=== PATIENT | male | born 1985 | race Caucasian/White ===

== ENCOUNTER → 2020-04-05 09:14 | Outpatient (CLI) | payer BC, SELFPAY ==
[2020-04-06 09:17] LABS: COVID19 Sendout Not Detected (Not Detect)
== END ==
PROVIDERS: Visit Provider Physician Assistant
DX: Z01.812 Encounter for preprocedural laboratory examination (principal); Z20.828 Contact with and (suspected) exposure to other viral communicable diseases
CPT/HCPCS: 87635

== ENCOUNTER → 2020-12-06 10:18 | Outpatient (CLI) | payer BC, SELFPAY ==
[2020-12-06 11:38] LABS: Cholesterol 164 mg/dL (140-199); Glucose 93 mg/dL (70-100); HDL Cholesterol 47 mg/dL (40-60); LDL Cholesterol Calculated 107 mg/dL (<100); Triglycerides 48 mg/dL (35-150)
== END ==
PROVIDERS: PCP Family Medicine; Referring Provider Family Medicine; Visit Provider Family Medicine
DX: Z13.1 Encounter for screening for diabetes mellitus (principal); Z82.49 Family history of ischemic heart disease and other diseases of the circulatory system; Z13.220 Encounter for screening for lipoid disorders
CPT/HCPCS: 36415; 80061; 82947

== ENCOUNTER → 2022-04-12 08:55 | Outpatient (CLI) | payer BC, SELFPAY ==
[2022-04-12 10:13] LABS: Cholesterol 173 mg/dL (140-199); Glucose 105 mg/dL (70-100); HDL Cholesterol 45 mg/dL (40-60); LDL Cholesterol Calculated 102 mg/dL (<100); Triglycerides 128 mg/dL (35-150)
== END ==
PROVIDERS: PCP Family Medicine; Referring Provider Family Medicine; Visit Provider Family Medicine
DX: Z13.1 Encounter for screening for diabetes mellitus (principal); E78.5 Hyperlipidemia, unspecified
CPT/HCPCS: 36415; 80061; 82947